=== PATIENT | female | born 1955 | race Hispanic/Latino ===

== ENCOUNTER 2018-03-22 13:06 | Emergency (ER) | payer MEDICARE, BC ==
[2018-03-22 13:09] VITALS: BP 121/75; PULSE 85; RESP 20; TEMP 97.6; O2SAT 95
--- NOTE | 2018-03-22 14:04 | RAD ---
Date of service: 03/22/2018 PROCEDURE: Right Knee Radiographs. HISTORY: twisted knee with posterior thigh pain COMPARISON: None. FINDINGS: BONES: Bone alignment and mineralization are normal. There is no acute displaced fracture or bone destruction. JOINTS: There is mild tricompartmental degenerative osteoarthrosis with reduced joint spaces, marginal osteophytes and tibial spiking, worse in the media compartment. JOINT EFFUSION: None. OTHER FINDINGS: None. IMPRESSION: There is mild tricompartmental degenerative osteoarthrosis with reduced joint spaces, marginal osteophytes and tibial spiking, worse in the media compartment. No acute fracture or dislocation.
--- NOTE | 2018-03-22 14:28 | C.PDOC ---
History Of Present Illness 63-year-old female, presents to the emergency department for evaluation of right leg pain. Patient states she was getting out of a taxi when she twisted her right leg, and has pain to knee that radiates up back of thigh. Patient notes she is unable to bear weight and pain worsens with movement. Patient took 400mg Ibuprofen with no relief. She denies a fall, numbness/weakness, or any other associated symptoms. Time Seen by Provider: 03/22/18 13:17 Chief Complaint (Nursing): Lower Extremity Problem/Injury History Per: Patient History/Exam Limitations: no limitations Current Symptoms Are (Timing): Still Present Past Medical History Reviewed: Historical Data, Nursing Documentation, Vital Signs Vital Signs: Last Vital Signs Temp 97.6 F 03/22/18 13:08 Pulse 85 03/22/18 13:08 Resp 20 03/22/18 13:08 BP 121/75 03/22/18 13:08 Pulse Ox 95 03/22/18 13:08 - Medical History PMH: HTN, Hypercholesterolemia, Hypothyroidism Family History: States: No Known Family Hx - Social History Hx Alcohol Use: No Hx Substance Use: No Review Of Systems Constitutional: Negative for: Fever Gastrointestinal: Negative for: Nausea, Vomiting Musculoskeletal: Positive for: Other (right knee pain) Neurological: Negative for: Weakness, Numbness Physical Exam - Physical Exam Appears: Non-toxic, No Acute Distress, Other (morbidly obese) Skin: Warm, Dry, No Rash Head: Atraumatic, Normacephalic Eye(s): bilateral: Normal Inspection Neck: No Midline Cervical Tenderness Chest: Symmetrical Extremity: Normal ROM, Tenderness (right anterior knee and right posterior thigh tender, no erythema or warmth noted. ), No Pedal Edema, No Calf Tenderness, No Deformity, No Swelling Pulses: Left Dorsalis Pedis: Normal, Right Dorsalis Pedis: Normal Neurological/Psych: Oriented x3, Normal Speech, Normal Cognition, Normal Motor, Normal Sensation ED Course And Treatment O2 Sat by Pulse Oximetry: 95 Pulse Ox Interpretation: Normal (RA) Medical Decision Making Medical Decision Making: pt given tylenol. has neg xray knee for fx , had knee immobilizer placed and much more comfortable. pt's pmd gave her rx for walker, will get that filled later today. will give tylenol, motrin and muscle relaxant for bedtime. Disposition Counseled Patient/Family Regarding: Studies Performed, Diagnosis, Need For Followup, Rx Given - Disposition Referrals: Yinka Quintanilla III, MD [Staff Provider] - Dottie Parker MD [Staff Provider] - Disposition: HOME/ ROUTINE Disposition Time: 14:29 Condition: IMPROVED Additional Instructions: Please wear knee immobilizer for support. Cold compresses to knee/thigh area several times a day. Tylenol and ibuprofen for pain. FOllow up with orthopedics and your pmd. Take muscle relaxant at bedtime- makes you sleepy. Prescriptions: Acetaminophen [Tylenol 325mg tab] 650 mg PO Q4 #50 tab Cyclobenzaprine [Flexeril] 5 mg PO HS #10 tab Ibuprofen [Motrin] 600 mg PO TID #30 tab Instructions: Lower Extremity Muscle Strain (DC) Forms: [facility] (Ukrainian), General Discharge Instructions - Clinical Impression Clinical Impression: Strain of knee and leg, right - Scribe Statement The provider has reviewed the documentation as recorded by the Scribe (Verona Bhatti) All medical record entries made by the Scribe were at my direction and personally dictated by me. I have reviewed the chart and agree that the record accurately reflects my personal performance of the history, physical exam, medical decision making, and the department course for this patient. I have also personally directed, reviewed, and agree with the discharge instructions and disposition.
== END 2018-03-22 14:46 | disposition home or self-care (01) ==
LOC: C.ER 13:06
DX: S86.911A Strain of unspecified muscle(s) and tendon(s) at lower leg level, right leg, initial encounter (principal); S76.911A Strain of unspecified muscles, fascia and tendons at thigh level, right thigh, initial encounter; X50.9XXA Other and unspecified overexertion or strenuous movements or postures, initial encounter